=== PATIENT | female | born 1935 | race Caucasian/White ===

== ENCOUNTER → 2020-01-01 14:29 | Outpatient (CLI) | payer MEDICARE, BC | END | disposition home or self-care (01) | LOC: D.HCCECHO 11:00 | PROVIDERS: ATTEND Internal Medicine Cardiovascular Disease | DX: I10 Essential (primary) hypertension (principal) ==

== ENCOUNTER → 2020-07-07 09:04 | Outpatient (CLI) | payer MEDICARE, BC ==
[~2020-07-07 09:04] MED LIST: GLIMEPIRIDE2 MG PO; GLUCOPHAGE1000 MG PO; METOPROLOL TART50 MG PO; NORVASC2.5 MG PO; TIROSINT88 MCG PO
== END | disposition home or self-care (01) ==
LOC: D.RAD 06-15 08:00
PROVIDERS: ATTEND Internal Medicine Gastroenterology
DX: R13.10 Dysphagia, unspecified (principal)

== ENCOUNTER 2020-07-09 08:27 | Inpatient (IN) | payer MEDICARE, BC ==
[~2020-07-09] VITALS: Ht 172.7 cm; Wt 56.7 kg
[2020-07-09] MEDS ORDERED: METOPROLOL TART50 MG PO (08:50)
[2020-07-09] MEDS ORDERED: GLUCOPHAGE1000 MG PO (08:50)
[2020-07-09] MEDS ORDERED: TIROSINT88 MCG PO (08:50)
[2020-07-09] MEDS ORDERED: NORVASC2.5 MG PO (08:51)
[2020-07-09] MEDS ORDERED: GLIMEPIRIDE2 MG PO (08:51)
[2020-07-09 09:20] LABS: BASOPHILS 0.2 % (0-2); EOSINOPHILS 1.9 % (0-7); HEMATOCRIT 33.7 % (36.0-48.0); IMMATURE GRANULOCYTES 0.2 % (0-5); LYMPHOCYTES 18.9 % (15-50); MCH 26.8 pg (26.0-34.0); MCHC 32.6 g/dL (31.0-37.0); MEAN PLATELET VOLUME 10.8 fL (7.4-10.4); MONOCYTES 8.5 % (2-11); NEUTROPHILS 70.3 % (40-80); PLATELET COUNT 274 10x3/uL (130-400); RBC 4.11 10x6/uL (4.00-5.40); RDW 15.1 % (11.5-14.5); WBC 9.5 10x3/uL (4.8-10.8)
[2020-07-09 09:31] LABS: CALC OSMOLALITY 267 mosm/kg (275-300); CARBON DIOXIDE 23.1 mmol/L (21.0-32.0); CHLORIDE - SERUM 98 mmol/L (98-107); CREATININE - SERUM 0.8 mg/dL (0.6-1.3); GLUCOSE 201 mg/dL (74-106); POTASSIUM - SERUM 3.9 mmol/L (3.5-5.1); SODIUM 131 mmol/L (136-145); UREA NITROGEN 10 mg/dL (7-18); eGFR NON AFRICAN AMERICAN 72 mL/min (90-120)
[2020-07-09 09:42] LABS: BILIRUBIN NEGATIVE (NEGATIVE); KETONE NEGATIVE (NEGATIVE); NITRITE NEGATIVE (NEGATIVE); UROBILINOGEN NORMAL mg/dL (< 2)
[2020-07-09 09:43] LABS: BACTERIA MANY /HPF (NONE SEEN)
[2020-07-09 09:45] LABS: ALBUMIN 3.4 g/dL (3.4-5.0); ALKALINE PHOSPHATASE 85 U/L (30-120); ALT (SGPT) 14 U/L (10-68); BILIRUBIN - TOTAL 0.31 mg/dL (0.2-1.3); CKMB 1.2 U/L (0.0-3.6); CREATINE KINASE 702 UL (21-215); PROTEIN - SERUM 8.4 g/dL (6.4-8.2); TROPONIN-I < 0.017 ng/mL (0.000-0.060)
[2020-07-09 09:55] LABS: APTT 27.7 SECONDS (22.8-39.4); INR 0.98 (0.85-1.17)
--- NOTE | 2020-07-09 13:00 | NUR ---
RECEIVED REPORT FROM LISE LINDA. PT LAYING IN BED. NO DISTRESS NOTED. COLOR WNL FOR RACE. RESPIRATIONS ARE EVEN AND UNLABORED. DENIES NEEDS AT THIS TIME. IV PATENT AND INFUSING AT 100ML/HR. NO SIGNS OF INFILATRATION NOTED. WILL CONTINUE TO MONITOR.
--- NOTE | 2020-07-09 15:00 | NUR ---
ASSISTED PATIENT TO BEDSIDE COMMODE WITHOUT DIFFICULTY. PT TOLERATED TRANSITION WELL. PT PLACED BACK IN BED AND DENIES FURTHER NEEDS AT THIS TIME. WILL CONTINUE TO MONITOR.
[2020-07-09 17:02] VITALS: BP 166/78
[2020-07-09 17:16] LABS: LDL-HDL RATIO 1.5 ratio (1.5-3.5)
--- NOTE | 2020-07-09 17:18 | NUR ---
CALLED REPORT TO BAN
[2020-07-09 17:45] LABS: CKMB 1.1 U/L (0.0-3.6); CREATINE KINASE 711 UL (21-215); TROPONIN-I < 0.017 ng/mL (0.000-0.060)
[2020-07-09 18:11] VITALS: BP 151/76
--- NOTE | 2020-07-09 18:19 | NUR ---
ADMIT FROM ER/STRETCHER TO ROOM 2131--PLACED IN COVID ISOLATION FOR PUI AWAITING RESULTS--PT IS A/O, SKIN W/D, 20GA IV TO LEFT AC PLACED/ER STAFF W/IVFINFUSING/ORDER PT TOLERATING ALL WELL. CAP LINING MACHINE OPERATOR IN ROOM OBTAINING VS. NO C/O NOTED AT THIS TIME.
--- NOTE | 2020-07-09 19:30 | NUR ---
PT ALERT AND ORIENTED. SHE DENIES PAIN OR NEEDS. VSS. BED IS LOW AND CALL LIGHT IN REACH.
[2020-07-09 22:50] LABS: CKMB 0.9 U/L (0.0-3.6); CREATINE KINASE 641 UL (21-215); TROPONIN-I < 0.017 ng/mL (0.000-0.060)
[2020-07-09 23:32] VITALS: BMI 19.1
[2020-07-10] VITALS (7 sets, daily range): BP systolic 130–156; BP diastolic 63–85; Ht 172.7 cm; Wt 56.7 kg
[2020-07-10 07:24] LABS: BASOPHILS 0.3 % (0-2); EOSINOPHILS 3.3 % (0-7); HEMATOCRIT 30.6 % (36.0-48.0); HEMOGLOBIN 9.7 g/dL (12-16); IMMATURE GRANULOCYTES 0.2 % (0-5); LYMPHOCYTES 30.4 % (15-50); MCH 26.1 pg (26.0-34.0); MCHC 31.7 g/dL (31.0-37.0); MCV 82.3 fL (80.0-100.0); MEAN PLATELET VOLUME 10.5 fL (7.4-10.4); MONOCYTES 11.7 % (2-11); NEUTROPHILS 54.1 % (40-80); PLATELET COUNT 224 10x3/uL (130-400); RBC 3.72 10x6/uL (4.00-5.40); RDW 15.1 % (11.5-14.5)
[2020-07-10 07:38] LABS: WBC 5.8 10x3/uL (4.8-10.8)
[2020-07-10 07:45] LABS: CKMB 1.1 U/L (0.0-3.6); CREATINE KINASE 604 UL (21-215); TROPONIN-I < 0.017 ng/mL (0.000-0.060)
[2020-07-10 13:08] LABS: ALBUMIN 3.1 g/dL (3.4-5.0); ALKALINE PHOSPHATASE 79 U/L (30-120); ALT (SGPT) 19 U/L (10-68); CALC OSMOLALITY 270 mosm/kg (275-300); CALCIUM 8.5 mg/dL (8.5-10.1); CARBON DIOXIDE 24.7 mmol/L (21.0-32.0); CHLORIDE - SERUM 103 mmol/L (98-107); CKMB 1.1 U/L (0.0-3.6); CREATINE KINASE 672 UL (21-215); CREATININE - SERUM 0.8 mg/dL (0.6-1.3); GLUCOSE 118 mg/dL (74-106); POTASSIUM - SERUM 3.7 mmol/L (3.5-5.1); PROTEIN - SERUM 7.5 g/dL (6.4-8.2); SODIUM 135 mmol/L (136-145); TROPONIN-I < 0.017 ng/mL (0.000-0.060); UREA NITROGEN 13 mg/dL (7-18); eGFR NON AFRICAN AMERICAN 72 mL/min (90-120)
[2020-07-10 17:02] LABS: % SATURATION 9 % (15-55); IRON 27 ug/dl (35-150); TOTAL IRON BIND CAPACITY 271 ug/dl (260-445); UNSAT IRON BIND CAPACITY 244 ug/dl (150-375)
--- NOTE | 2020-07-10 20:00 | NUR ---
PATIENT RESTING IN BED WITH DAUGTHER AT BEDSIDE. NO S/S OF ACUTE DISTRESS. NO C/O AT THIS TIME. PATIENT HAS A LEFT WRIST, NORMAL SALINE @ 100 ML/HR. IV IS PATENT WITHOUT REDNESS, SWELLING, OR TENDERNESS. PATIENT IS UP ADLIB TO THE BATHROOM. CALL LIGHT WITHIN REACH. WILL CONTINUE TO MONITOR.
[2020-07-10 20:15] LABS: BILIRUBIN NEGATIVE (NEGATIVE); KETONE SMALL mg/dL (NEGATIVE); NITRITE NEGATIVE (NEGATIVE); UROBILINOGEN NORMAL mg/dL (< 2)
[2020-07-10 20:17] LABS: BACTERIA FEW HPF (NONE SEEN); EPITHELIAL CELLS 0-5 /hpf (0-5)
--- NOTE | 2020-07-11 04:04 | NUR ---
I have reviewed this patient and I concur with the Shift Assessment completed by the Licensed Practical Nurse today this shift.
[2020-07-11 05:33] VITALS: BP 162/77
[2020-07-11 05:54] LABS: BASOPHILS 0.2 % (0-2); EOSINOPHILS 3.7 % (0-7); HEMATOCRIT 30.6 % (36.0-48.0); HEMOGLOBIN 9.7 g/dL (12-16); IMMATURE GRANULOCYTES 0.2 % (0-5); LYMPHOCYTES 32.4 % (15-50); MCHC 31.7 g/dL (31.0-37.0); MEAN PLATELET VOLUME 10.2 fL (7.4-10.4); MONOCYTES 12.2 % (2-11); NEUTROPHILS 51.3 % (40-80); PLATELET COUNT 226 10x3/uL (130-400); RBC 3.73 10x6/uL (4.00-5.40); RDW 15.1 % (11.5-14.5); WBC 4.8 10x3/uL (4.8-10.8)
[2020-07-11 06:10] LABS: ALBUMIN 2.8 g/dL (3.4-5.0); ALKALINE PHOSPHATASE 66 U/L (30-120); ALT (SGPT) 15 U/L (10-68); BILIRUBIN - TOTAL 0.19 mg/dL (0.2-1.3); CALC OSMOLALITY 277 mosm/kg (275-300); CALCIUM 8.3 mg/dL (8.5-10.1); CARBON DIOXIDE 22.8 mmol/L (21.0-32.0); CHLORIDE - SERUM 108 mmol/L (98-107); CREATININE - SERUM 0.7 mg/dL (0.6-1.3); GLUCOSE 152 mg/dL (74-106); PROTEIN - SERUM 6.9 g/dL (6.4-8.2); SODIUM 138 mmol/L (136-145); eGFR NON AFRICAN AMERICAN 84 mL/min (90-120)
[2020-07-11 06:15] LABS: UREA NITROGEN 9 mg/dL (7-18)
[2020-07-11 08:31] VITALS: BP 141/70
[2020-07-11 11:45] VITALS: BP 130/62
--- NOTE | 2020-07-11 14:17 | MORECARE ---
CASE MANAGEMENT DISCHARGE SUMMARY PATIENT: OSWALDO BO UNIT: [id number] ADM DATE: 07/09/20 AGE: 85 : 35 SEX: F ROOM/BED: D.3630 AUTHOR: REBECCA DE LA TORRE PHYSICIAN: REFERRING PHYSICIAN: HELDER WAYNE MD DATE OF SERVICE: 07/11/20 Discharge Plan Patient Name: OSWALDO BO Facility: [facility]:[place] : 1935 Planned Disposition: Home Anticipated Discharge Date: 07/11/20 Discharge Date: Expected LOS: 2 Initial Reviewer: [email or web address] Initial Review Date: 07/11/2020 Generated: 07/11/20 3:16 pm Comments DCP- Discharge Planning Updated by [email or web address]: Shmuel Bowles on 07/11/20 1:[address] Patient Name: OSWALDO BO Admission Status: ER Accout number: [id number] Admission Date: 07-09-2020 : 1935 Admission Diagnosis:WEAKNESS Attending: HELDER WAYNE Current LOS: 2 Anticipated DC Date: Planned Disposition: Primary Insurance: MEDICARE A & B Discharge Planning Comments: CM met with patient to complete initial dc planning assessment. CM educated patient on the CM role and verbal consent given by patient to speak with daughterCassie ([phone]) to complete assessment. CM verified patient's address, phone number, and emergency contact phone numbers. Patient lives at home. At discharge patient plans to return home and feels this is a safe discharge. Patient and daughter stated that she has a ramp to go into her home and it is safe. Daughter states that the patient fills her medications at [facility] in [place], [place]. CM discussed availability of home health, rehab services, and medical equipment. Patient states no Lower level care needs at this time and refused HH, DME, SNF, and IPR. Transportation provider at discharge will be her daughterCassie. CM will continue to follow and will assist as needed with dc plans/needs. Induction Heat Treater: Shmuel Bowles Patient Name: OSWALDO BO Page [phone] at 1417 All edits/amendments must be made on the electronic document DICTATION DATE: 07/11/201415 STEAM PAN SPONGER: GLENYS 07/11/201415 RPT#: [id number] DC DATE: STATUS: ADM IN [facility] [address] [place] [address] END OF REPORT
--- NOTE | 2020-07-11 14:23 | MORECARE ---
CASE MANAGEMENT DISCHARGE SUMMARY PATIENT: OSWALDO BO UNIT: [id number] ADM DATE: 07/09/20 AGE: 85 : 35 SEX: F ROOM/BED: D.3837 AUTHOR: REBECCA DE LA TORRE PHYSICIAN: REFERRING PHYSICIAN: HELDER WAYNE MD DATE OF SERVICE: 07/11/20 Discharge Plan Patient Name: OSWALDO BO Facility: [facility]:[place] : 1935 Planned Disposition: Home Anticipated Discharge Date: 07/11/20 Discharge Date: Expected LOS: 2 Initial Reviewer: [email or web address] Initial Review Date: 07/11/2020 Generated: 07/11/20 3:23 pm Comments DCP- Discharge Planning Updated by [email or web address]: Shmuel Bowles on 07/11/20 1:[address] Patient Name: OSWALDO BO Admission Status: ER Accout number: [id number] Admission Date: 07-09-2020 : 1935 Admission Diagnosis:WEAKNESS Attending: HELDER WAYNE Current LOS: 2 Anticipated DC Date: Planned Disposition: Primary Insurance: MEDICARE A & B Discharge Planning Comments: CM met with patient to complete initial dc planning assessment. CM educated patient on the CM role and verbal consent given by patient to speak with daughterCassie ([phone]) to complete assessment. CM verified patient's address, phone number, and emergency contact phone numbers. Patient lives at home. At discharge patient plans to return home and feels this is a safe discharge. Patient and daughter stated that she has a ramp to go into her home and it is safe. Daughter states that the patient fills her medications at [facility] in [place], [place]. CM discussed availability of home health, rehab services, and medical equipment. Patient states no Lower level care needs at this time and refused HH, DME, SNF, and IPR. Transportation provider at discharge will be her daughterCassie. CM will continue to follow and will assist as needed with dc plans/needs. Vice President Of Academic Affairs: Shmuel Bowles DCPIA - Discharge Planning Initial Assessment Updated by [email or web address]: Shmuel Bowles on 07/11/20 2:18 pm * Is the patient Alert and Oriented? Yes * How many steps to enter\exit or inside your home? RAMP * PCP Dr. Trujillo * Pharmacy [facility] in [place], [place] * Preadmission Environment Home Alone * ADLs Independent * Equipment None * Other Equipment NONE * List name and contact numbers for known caregivers / representatives who currently or will assist patient after discharge: Cassie Gonzalezpherd * Verbal permission to speak to the caregivers and representatives has been obtained from the patient. Yes * Community resources currently utilized None * Additional services required to return to the preadmission environment? No * Can the patient safely return to the preadmission environment? Yes * Has this patient been hospitalized within the prior 30 days at any hospital? No Coverage Notice Reviewer: [email or web address] Les Bowles Notice Issued Date-Time: 07/11/2020 14:18 Notice Type: Patient Choice Letter Notice Delivered To: Patient Relationship to Patient: Self Director Of Perioperative Services Name: Delivery Method: HAND - Hand Delivered Rose Days: Prior Verbal Notification: Recipient Understood Notice: Yes Recipient Signature: Yes Med Rec Note Co-signed by Attending: Coverage Notice Comment: NO needs, Patient Refused IPR, HH, SNF, and DME Last DP export: 07/11/20 1:17 p Patient Name: OSWALDO BO Page [phone] at 1423 All edits/amendments must be made on the electronic document DICTATION DATE: 07/11/201422 COLLABORATIVE TEACHER: GLENYS 07/11/201422 RPT#: [id number] DC DATE: STATUS: ADM IN [facility] [address] [place] [address] END OF REPORT
--- NOTE | 2020-07-11 14:34 | NUR ---
DC'D PT'S IV FROM RT WRIST--CATH INTACT--SMALL BANDAGE APPLIED, PT TOLERATED WELL. CM DC'D. ALL DC PAPERWORK VERBALLY EXPLAINED TO PT AND PT'S DAUGHTER W/UNDERSTANDING STATED TO ALL. PT EXITED HOSPITAL/WHEELCHAIR IN GOOD STABLE CONDITION TO DAUGHTERS PRIVATE AUTO.
--- NOTE | 2020-07-13 09:08 | MORECARE ---
CASE MANAGEMENT DISCHARGE SUMMARY PATIENT: OSWALDO BO UNIT: [id number] ADM DATE: 07/09/20 AGE: 85 : 35 SEX: F ROOM/BED: D.1846 AUTHOR: REBECCA DE LA TORRE PHYSICIAN: REFERRING PHYSICIAN: HELDER WAYNE MD DATE OF SERVICE: 07/13/20 Discharge Plan Patient Name: OSWALDO BO Facility: [facility]:[place] : 1935 Planned Disposition: Home Anticipated Discharge Date: 07/11/20 Discharge Date: 07/11/2020 Expected LOS: 2 Initial Reviewer: [email or web address] Initial Review Date: 07/11/2020 Generated: 07/13/20 10:07 am Comments DCP- Discharge Planning Updated by [email or web address]: Shmuel Bowles on 07/11/20 1:[address] Patient Name: OSWALDO BO Admission Status: ER Accout number: [id number] Admission Date: 07-09-2020 : 1935 Admission Diagnosis:WEAKNESS Attending: HELDER WAYNE Current LOS: 2 Anticipated DC Date: Planned Disposition: Primary Insurance: MEDICARE A & B Discharge Planning Comments: CM met with patient to complete initial dc planning assessment. CM educated patient on the CM role and verbal consent given by patient to speak with daughterCassie ([phone]) to complete assessment. CM verified patient's address, phone number, and emergency contact phone numbers. Patient lives at home. At discharge patient plans to return home and feels this is a safe discharge. Patient and daughter stated that she has a ramp to go into her home and it is safe. Daughter states that the patient fills her medications at [facility] in [place], [place]. CM discussed availability of home health, rehab services, and medical equipment. Patient states no Lower level care needs at this time and refused HH, DME, SNF, and IPR. Transportation provider at discharge will be her daughterCassie. CM will continue to follow and will assist as needed with dc plans/needs. Gallery Or Museum Attendant: Shmuel Bowles DCPIA - Discharge Planning Initial Assessment Updated by [email or web address]: Shmuel Bowles on 07/11/20 2:18 pm * Is the patient Alert and Oriented? Yes * How many steps to enter\exit or inside your home? RAMP * PCP Dr. Trujillo * Pharmacy [facility] in [place], [place] * Preadmission Environment Home Alone * ADLs Independent * Equipment None * Other Equipment NONE * List name and contact numbers for known caregivers / representatives who currently or will assist patient after discharge: Cassie Reese * Verbal permission to speak to the caregivers and representatives has been obtained from the patient. Yes * Community resources currently utilized None * Additional services required to return to the preadmission environment? No * Can the patient safely return to the preadmission environment? Yes * Has this patient been hospitalized within the prior 30 days at any hospital? No Coverage Notice Reviewer: [id number] Les Bowles Notice Issued Date-Time: 07/11/2020 13:35 Notice Type: Patient Choice Letter Notice Delivered To: Patient Relationship to Patient: Self Metal Welder Name: Delivery Method: HAND - Hand Delivered Rose Days: Prior Verbal Notification: Recipient Understood Notice: Yes Recipient Signature: Yes Med Rec Note Co-signed by Attending: Coverage Notice Comment: NO needs, Patient Refused IPR, HH, SNF, and DME Last DP export: 07/11/20 1:23 p Patient Name: OSWALDO BO Page [phone] at 0908 All edits/amendments must be made on the electronic document DICTATION DATE: 07/13/20907 REGISTERED SALES ASSISTANT: GLENYS 07/13/20907 RPT#: [id number] DC DATE:07/11/20 STATUS: DIS IN [facility] [address] [place] [address] END OF REPORT
== END 2020-07-11 14:38 | disposition home or self-care (01) | DRG 69 ==
LOC: D.ER 08:27 → D.M2 10:51
PROVIDERS: Family Medicine; ADMIT Emergency Medicine; ATTEND Emergency Medicine
DX: G45.9 Transient cerebral ischemic attack, unspecified (principal); E87.1 Hypo-osmolality and hyponatremia; N39.0 Urinary tract infection, site not specified; E11.65 Type 2 diabetes mellitus with hyperglycemia; D64.9 Anemia, unspecified; I69.891 Dysphagia following other cerebrovascular disease; R13.10 Dysphagia, unspecified

== ENCOUNTER → 2020-07-28 07:55 | Outpatient (CLI) | payer MEDICARE, BC ==
[2020-07-10 13:46] VITALS: BMI 19.0
== END | disposition home or self-care (01) ==
LOC: D.HCCARDIO 07:55
PROVIDERS: ATTEND Internal Medicine Cardiovascular Disease
DX: R07.9 Chest pain, unspecified (principal)

== ENCOUNTER 2021-03-07 11:22 | Observation (INO) | payer MEDICARE, BC ==
[2021-03-07] VITALS (8 sets, daily range): BP systolic 117–198; BP diastolic 65–83; Ht 172.7 cm; Wt 56.8 kg
[~2021-03-07] VITALS: Ht 172.7 cm; Wt 56.8 kg
--- NOTE | ~2021-03-07 | HEMODYNAMI ---
PATIENT:OSWALDO BO MEDICAL RECORD: [id number] : 35 [id number] ADMISSION DATE: 03/07/21 Generatedon:111:52 Patient name: OSWALDO BO Patient #: [id number] SSN: [id number] : 1935 Date of study: 03/08/2021 Page: Of Hemodynamic Procedure Report Patient Data Patient Demographics Procedure consent was obtained First Name: OSWALDO Gender: Female Last Name: ANUPAM : 1935 Middle Initial: J Age: 85 year(s) Patient #: [id number] Race: SSN: [id number] Additional ID: [id number] Contact details Address: [address] [place] [address] State: [place] City: [place] Zip code: [address] Past Medical History Allergies: No known allergies Admission Admission Data Admission Date: 03/07/2021 Admission Time: 13:59 Arrival Date: 03/07/2021 Arrival Time: 13:59 Admit Source: Emergency Insurance Payor: Medicare department [facility] #: [id number] Room #: [facility] Height (in.): 67.72 BSA: 1.66 (m2) Height (cm.): 172 BMI: 18.93 (kg/m2) Weight (lbs.): 123.46 Weight (kg.): 56 Lab Results Lab Result Date: 03/08/2021 Lab Result Time: 0:00 Biochemistry Name Units Result Min Max BUN mg/dl 16 --(---*)-- 7 18 Creatinine mg/dl 0.7 --(*---)-- 0.6 1.3 CBC Name Units Result Min Max Hemoglobin g/dl 9.8 *-(----)-- 13.5 17.5 Procedure Procedure Types Cath Procedure Diagnostic Procedure LHC LHC w/Coronaries FFR/IVUS FFR Initial FFR Additional Sedation Charges Moderate Sedation 25-39 minutes PCI Procedure Hemochron ACT Test Procedure Description Procedure Date Procedure Date: 03/08/2021 Procedure Start Time: 11:20 Procedure End Time: 11:49 Procedure Staff Name Function Kevon Redmond MD Performing Physician Angeline Kunz RT Monitor Zoie Macario RT Scrub Jaziel Hendrickson RN Nurse Procedure Data Cath Procedure Fluoroscopy Diagnostic fluoroscopy Total fluoroscopy Time: 5.3 time: 5.3 min min Diagnostic fluoroscopy Total fluoroscopy dose: 446 dose: 446 mGy mGy Contrast Material Contrast Material Type Amount (ml) Isovue 370 90 Entry Location Entry Primary Successful Side Size Upsize Upsize Entry Closure Succes sful Closure Location (Fr) 1 (Fr) 2 (Fr) Remarks Device Remarks Femoral Right 5 Fr 6 Fr Exoseal artery Short Estimated blood loss: 5 ml Diagnostic catheters Device Type Used For End Catheter Placement MULTIPACK JL 4.0 5Fr Procedure catheter MULTIPACK 3DRC 5Fr Procedure catheter MULTIPACK Pigtail 5 Fr Procedure catheter Procedure Complications No complications Procedure Medications Medication Administration Route Dosage 0.9% NaCl I.V. 100 ml/hr Oxygen etCO2 Nasal cannula 2 l/min Heparin Flush Bag added to field 2 bags (1000units/500ml NS) Lidocaine 2% added to field 20 Versed I.V. 0.5 mg Fentanyl I.V. 25 mcg Versed I.V. 0.5 mg Fentanyl I.V. 25 mcg Heparin Bolus I.V. 5000 units Hemodynamics Rest BSA: 1.66 (m2) HGB: 9.8 (g/dl) O2 Consumption: Estimated: 147.34 (ml/min) O2 Con sumption indexed: Estimated:88.76 (ml/min/m) Heart Rate: 70 (bpm) Pressure Samples Time Site Value (mmHg) Purpose Heart Use Rate(bpm) 11:28 AO 108/42(72) Pullback 66 11:28 LV 119/-1,20 Pullback 66 Gradients Valve Time Site 1 Site 2 Mean SEP/DFP Peak To Heart Use (mmHg) (sec/min) Peak Rate (mmHg) (bpm) Aortic 11:28 LV AO 8 23 11 66 119/-1,20 108/42(72) Calculations Valve P-P Mean Valve Index Valve Source Name Gradient Area Flow (cm2) Aortic 11 8 11 8 Snapshots Pre Cath Intra NCS Post Cath Vital Signs Time Heart Resp SPO2 etCO2 NIBP (mmHg) Rhythm Pain Sedation Rate (ipm) (%) (mmHg) Status Level (bpm) 11:07:42 70 17 100 29.2 168/75(135) NSR 0 (11) 10(A) , No pain 11:12:02 66 15 100 11.2 140/67(111) NSR 0 (11) 10(A) , No pain 11:16:14 65 11 100 0 125/64(94) NSR 0 (11) 10(A) , No pain 11:20:22 65 13 100 0 122/62(96) NSR 0 (11) 10(A) , No pain 11:24:28 64 11 99 0 119/59(92) NSR 0 (11) 10(A) , No pain 11:28:36 65 10 99 0 114/57(87) NSR 0 (11) 10(A) , No pain 11:32:40 66 12 99 27.6 130/60(93) NSR 0 (11) 10(A) , No pain 11:36:49 66 11 99 0 112/61(89) NSR 0 (11) 9(A) , No pain 11:40:53 66 13 99 0 122/59(94) NSR 0 (11) 9(A) , No pain 11:45:56 68 15 100 0.7 145/72(117) NSR 0 (11) 10(A) , No pain 11:50:08 68 14 99 0 132/69(113) NSR 0 (11) 10(A) , No pain Medications Time Medication Route Dose Verified Delivered Reason Notes Effectiveness by by 11:10:31 0.9% NaCl I.V. 100 Jaziel Jaziel Per physician ml/hr Madhavi Hendrickson RN RN 11:10:40 Oxygen etCO2 2 Jaziel Jaziel for low 02 sats Nasal l/min Madhavi Hendrickson cannula RN RN 11:10:51 Heparin Flush added 2 Jaziel Jaziel used for Bag to bags Madhavi Hendrickson procedure (1000units/500ml field RN RN NS) 11:11:00 Lidocaine 2% added 20ml Jaziel Jaziel for local to vial Madhavi Hendrickson anesthetic field LINDA RN 11:17:15 Versed I.V. 0.5 Jaziel Jaziel for sedation mg Madhavi Hendrickson RN RN 11:17:24 Fentanyl I.V. 25 Jaziel Jaziel for sedation mcg Madhavi Hendrickson RN RN 11:21:32 Versed I.V. 0.5 Jaziel Jaziel for sedation mg Madhavi Hendrickson RN RN 11:21:38 Fentanyl I.V. 25 Jaziel Jaziel for sedation mcg Madhavi Hendrickson RN RN 11:33:26 Heparin Bolus I.V. 5000 Jaziel Jaziel for units Madhavi Hendrickson anticoagulation RN shower attendant Log Time Note 10:37:40 Diagnostic Cath Status : Urgent 10:38:16 Informed consent obtained and on chart 10:39:01 Arrival Date: 03/07/2021 1:59:00 PM 10:39:33 Insurance Payor : Medicare 10:39:34 Admit Source: Emergency department 10:39:38 Patient Height : 67.72 inches 10:39:42 Patient Weight : 123.46 lbs 10:40:17 Lab Result : Hemoglobin 9.8 g/dl 10:40:17 Lab Result : Creatinine 0.7 mg/dl 10:40:17 Lab Result : BUN 16 mg/dl 10:40:30 Procedure Status Urgent Heart Cath (IP). 10:40:32 Time tracking: Regular hours (M-F 7:00 - 5:00) 10:40:36 Plan of Care:Hemodynamics will remain stable., Cardiac rhythm will remain stable., Comfort level will be maintained., Respiratory function will remain adequate., Patient/ family verbilizes understanding of procedure., Procedure tolerated without complication., Recovers from procedure without complications.. 10:49:30 ACC Patient presents with Unstable Angina CCS Anginal Class 2--Slight limitation of ordinary activity. 10:52:09 Zoie Macario RT(R) sent for patient. Start room use. 10:53:09 H&P Date Dictated: 03/07/2021 Within 30 days and on chart.. 10:53:11 Family unavailable. 10:53:13 Patient NPO since Midnight. 10:53:19 Patient allergic to No known allergies 10:53:25 Lab results completed and on chart. 10:53:28 Stress Test: no; N/A ? 10:53:30 Alarms reviewed by R. N. 10:53:30 Sharps counted by scrub and verified by R.N. 10:58:51 Patient received from Med II to CCL 2 Alert and oriented. Tansferred to table in Supine position. 10:58:52 Warm blankets applied, and delgado hugger turned on for patient comfort. 10:58:53 Correct patient and procedure confirmed by team. 10:58:53 ECG and BP/O2 sat monitors applied to patient. 10:59:00 Pre-procedure instructions explained to patient. 10:59:00 Pre-op teaching completed and patient verbalized understanding. 10:59:02 Is the patient allergic to Iodine/contrast media? No. 10:59:03 Was the patient premedicated? Yes 11:06:34 Vital chart was started 11:06:41 Full Disclosure recording started 11:06:42 Baseline sample Acquired. 11:06:45 Is patient on blood thinner?Yes 11:06:48 ACC The patient was administered the following blood thiners within the last 24 hours: ACCPlavix 11:06:50 Patient diabetic? Yes. 11:06:51 If diabetic: On Metformin? Yes 11:06:55 If on Metformin: Last Dose? 03/07/2021 11:06:59 Patient not . Patient is over age 55. 11:07:00 ----Pre-sedation anethsthesia assessment.---- 11:07:02 Previous problem with sedation/anesthesia? No ? 11:07:03 Snore? Yes 11:07:04 Sleep apnea? Unknown 11:07:05 Deviated septum? No 11:07:06 Opens mouth fully? Yes 11:07:07 Sticks out tongue? Yes 11:07:09 Airway obstruction? No ? 11:07:11 Dentures? No ? 11:07:13 Pre procedure: right dorsailis pedis pulse 1+ Palpable, but thready & weak; easily obliterated 11:07:17 Patient pain scale 0/10 ?. 11:07:22 IV patent on arrival in left antecubital with 0.9% NaCl at O. 11:07:27 Right groin area was prepped with chlora-prep and draped in sterile fashion 11:07:30 Use device set Femoral Dx 11:07:31 ACIST Syringe (03490) opened to sterile field. 11:07:31 Bag Decanter (2002) opened to sterile field. 11:07:32 Medline Cath Pack ([id number]) opened to sterile field. 11:07:33 ACIST Hand Control (83567) opened to sterile field. 11:07:34 ACIST Manifold (14870) opened to sterile field. 11:07:35 DIAGNOSTIC Multipack 5Fr catheter set (MT1152) opened to sterile field. 11:07:35 SHEATH 5FR [employer] (VRW773) opened to sterile field. 11:07:36 EMERALD Guide Wire (393-771) opened to sterile field. 11:07:37 Tegaderm 4 x 4 (1626W) opened to sterile field. 11:07:50 Rhythm: sinus rhythm 11:10:31 0.9% NaCl 100 ml/hr I.V. was administered by Jaziel Hendrickson RN; Per physician; Verbal order read back and verified. 11:10:40 Oxygen 2 l/min etCO2 Nasal cannula was administered by Jaziel Hendrickson RN; for low 02 sats; Verbal order read back and verified. 11:10:51 Heparin Flush Bag (1000units/500ml NS) 2 bags added to field was administered by Jaziel Hendrickson RN; used for procedure; Verbal order read back and verified. 11:11:00 Lidocaine 2% 20ml vial added to field was administered by Jaziel Hendrickson RN; for local anesthetic; Verbal order read back and verified. 11:12:19 --------ALL STOP TIME OUT------ 11:12:19 Final Timeout: patient, procedure, and site verified with staff and physician. All members of the team are in agreement. 11:12:21 Right groin site verified by team. 11:12:24 Fire Safety Assessment: A--An alcohol-based skin anteseptic being used preoperatively., C--Open oxygen or nitrous oxide is being used., D--An ESU, laser, or fiber-optic light is being used. 11:12:34 Physical assessment completed. ASA score P 2 - A patient with mild systemic disease as per Kevon Redmond MD. 11:12:37 2) 60-89 Mildly reduced kidney function, and other findings (as for stage 1) point to kidney disease. 11:12:40 Maximum allowable contrast dose (3.7 X eGFR X 0.75)233 ml. 11:12:44 Sedation plan: IV Moderate Sedation Medication:Versed, Fentanyl 11:17:15 Versed 0.5 mg I.V. was administered by Jaziel Hendrickson RN; for sedation; Verbal order read back and verified. 11:17:24 Fentanyl 25 mcg I.V. was administered by Jaziel Hendrickson RN; for sedation; Verbal order read back and verified. 11:19:28 Procedure started. 11:20:28 Local anesthetic to right femoral artery with Lidocaine 2% by Kevon Redmond MD.INITIAL ACCESS ONLY 11:21:32 Versed 0.5 mg I.V. was administered by Jaziel Hendrickson RN; for sedation; Verbal order read back and verified. 11:21:38 Fentanyl 25 mcg I.V. was administered by Jaziel Hendrickson RN; for sedation; Verbal order read back and verified. 11:22:24 EMERALD J WIRE INSERTED FOR SHEATH ACCESS. 11:22:35 A 5 Fr sheath was inserted into the Right Femoral artery 11:23:26 A MULTIPACK JL 4.0 5Fr catheter was advanced over the wire and used for Procedure. 11:23:52 LCA angiography performed. 11:23:55 Injector settings: Ml/sec: 3, Volume: 6, 11:24:39 Catheter exchanged over wire. 11:25:16 A MULTIPACK 3DRC 5Fr catheter was advanced over the wire and used for Procedure. 11:25:47 RCA angiography performed. 11:25:52 Injector settings: Ml/sec: 3, Volume: 6, 11:26:11 ACCDominant side:Co-Dominant 11:26:53 A MULTIPACK Pigtail 5 Fr catheter was advanced over the wire and used for Procedure. 11:27:05 Use device set REDMOND PCI 11:27:10 LV gram done using GARCIA 11:28:06 LV hemodynamics recorded. 11:28:11 Injector settings: Ml/sec: 5, Volume: 15, 11:28:16 EF : 60 % 11:28:27 Catheter exchanged over wire. 11:28:30 Proceeding to intervention. 11:29:51 INFLATOR Merit BasixCompak (JL7869) opened to sterile field. 11:29:52 TUBING High Pressure Extension Tubing (Redmond) (YL4875E) opened to sterile field. 11:29:58 SHEATH 6FR [employer] (OLK014) opened to sterile field. 11:30:24 GUIDE 6FR XBLAD 3.5 catheter ([id number]) opened to sterile field. 11:32:11 Huger OmniWire (77728) opened to sterile field. 11:32:43 Sheath upsized to a 6 Fr Short. 11:32:45 6 Fr XBLAD 3.5 guide catheter was inserted over the wire 11:33:26 Heparin Bolus 5000 units I.V. was administered by Jaziel Hendrickson RN; for anticoagulation; Verbal order read back and verified. 11:34:20 OMNI PRESSURE WIRE wire advanced. 11:35:07 Zero performed for pressure channel P1 11:35:10 Zero performed for pressure channel P1 11:35:51 Wire advanced across lesion. 11:39:08 Circ lesion measured at .95 with IFR 11:41:19 Wire redirected to LAD. 11:41:53 LAD lesion measured at .93 with IFR 11:43:14 Wire removed. 11:43:15 Guide catheter removed. 11:43:23 EXOSEAL 6Fr (EX600) opened to sterile field. 11:44:14 Sheath removed intact; hemostasis achieved with Exoseal to the Right Femoral artery. 11:44:31 Fluoroscopy time 05.30 minutes. 11:44:36 Fluoroscopy dose: 446 mGy 11:44:36 Flurop Dose total: 446 11:44:41 Dose Area Product 51171 mGy/cm. 11:44:44 Sharps counted by scrub and verified by R.N. 11:45:06 Procedure ended.(Physican Out) 11:46:45 Contrast amount:Isovue 370 90ml. 11:46:48 Maximum allowable dose exceeded? No. 11:46:58 Post-op/insertion site Right Femoral artery dressed using a 4 x 4 and Tegaderm. 11:47:02 Post right femoral artery:stable, soft, clean and dry 11:47:03 Post Procedure Pulses reassessed and unchanged 11:47:06 Post procedure: right dorsailis pedis pulse 1+ Palpable, but thready & weak; easily obliterated. 11:47:09 Post-procedure physical assessment completed. ASA score P 2 - A patient with mild systemic disease as per Kevon Redmond MD. 11:47:12 Post procedure rhythm: unchanged. 11:47:16 Estimated blood loss: 5 ml 11:47:17 Post procedure instruction explained to patient.Patient verbalizes understanding. 11:47:18 Patient needs reinforcement of post procedure teaching. 11:47:49 Procedure type changed to Cath procedure, Diagnostic procedure, LHC, [facility] w/Coronaries, FFR/IVUS, FFR Initial, FFR Additional, Sedation Charges, Moderate Sedation 25-39 minutes, PCI procedure, Hemochron ACT Test 11:48:31 Procedure and supply charges have been captured, reviewed, submitted and are correct. 11:48:34 Procedure Complication : No complications 11:48:45 [facility] Findings: mild to moderate CAD (<70%) 11:48:48 Operative report dictated upon procedure completion. 11:48:48 See physician's report for complete and final results. 11:49:39 Report given to [facility]. 11:49:42 Patient transfered to [facility] with Bed. 11:49:44 Procedure ended. 11:49:44 Full Disclosure recording stopped 11:49:50 End room use (Document Last) 11:51:06 ACT drawn and resulted at >400 high out of range seconds. (normal therapeutic range 180-240 seconds). 11:51:39 End room use (Document Last) 11:51:55 End room use (Document Last) 11:52:51 Vital chart was stopped Device Usage Item Name Manufacture Quantity Catalog Hospital Part Current Minimal L ot# / Number Charge Number Stock Stock Serial# Code ACIST Acist 1 78003 471701 795251 390450 20 Syringe Medical (07153) Systems Inc Bag Microtek 1 174994 10241 872747 5 Decanter Medical Inc. () Medline Medline 1 [id number] 523637 70185 353969 5 Cath Pack ([id number]) ACIST Hand Acist 1 15648 998822 206055 690515 5 Control Medical (56322) Systems Inc ACIST Acist 1 18251 624060 664998 150393 5 Manifold Medical (12777) Systems Inc DIAGNOSTIC Cardinal 1 VW3212 847924 52240 675603 30 Multipack Health 5Fr catheter set (BL7686) SHEATH 5FR Terumo 1 QQJ913 483775 195832 131368 5 [employer] (LYL484) EMERALD Cardinal 1 502-455 256177 381730 139951 5 Guide Wire Health (502-455) Tegade 4 3M 1 1626W 831044 181408 500933 5 x 4 (1626W) MULTIPACK Cardinal 1 484191 5 JL 4.0 5Fr Health catheter MULTIPACK Cardinal 1 409434 5 3DRC 5Fr Health catheter MULTIPACK Cardinal 1 077131 5 Pigtail 5 Health Fr catheter INFLATOR Merit 1 NN1829 380743 318198 148117 15 Merit Medical BasixCompak (EZ3998) TUBING High Merit 1 [id number] 657083 30795 219257 10 Pressure Medical Extension Tubing (Redmond) (FF3010R) SHEATH 6FR Terumo 1 ILJ473 810848 022206 491299 40 [employer] (OKK627) GUIDE 6FR Cardinal 1 54495003 561816 780261 476962 10 XBLAD 3.5 Health catheter (10462934) Huger Huger 1 6671082 019525 49091 9939 5 OmniWire (44707) EXOSEAL 6Fr Cardinal 1 EX600 744326 462097 034034 10 (EX600) Health Signature Audit Gerlaw Stage Time Signature Unsigned Intra-Procedure 03/08/2021 Angeline Kunz 11:51:39 AM RT(R) Intra-Procedure 03/08/2021 Jaziel 11:51:55 AM Madhavi LINDA Intra-Procedure 03/08/2021 Kevon Redmond MD 11:52:48 AM Signatures Performing Physician : Signature : Kevon Redmond MD Date : Time : Monitor : Angeline Kunz Signature : RT Date : Time : Nurse : Jaziel Hendrickson Signature : RN Date : Time : [facility] [address] [place] [address]
[2021-03-07 11:51] LABS: BASOPHILS 0.3 % (0-2); EOSINOPHILS 1.3 % (0-7); HEMATOCRIT 33.4 % (36.0-48.0); HEMOGLOBIN 10.7 g/dL (12-16); IMMATURE GRANULOCYTES 0.3 % (0-5); LYMPHOCYTES 34.6 % (15-50); MCH 25.1 pg (26.0-34.0); MCV 78.4 fL (80.0-100.0); MEAN PLATELET VOLUME 10.2 fL (7.4-10.4); MONOCYTES 10.2 % (2-11); NEUTROPHILS 53.3 % (40-80); RBC 4.26 10x6/uL (4.00-5.40); RDW 15.9 % (11.5-14.5); WBC 9.6 10x3/uL (4.8-10.8)
[2021-03-07 11:54] LABS: PLATELET COUNT 320 10x3/uL (130-400)
[2021-03-07 11:57] LABS: CALC OSMOLALITY 273 mosm/kg (275-300); CALCIUM 9.5 mg/dL (8.5-10.1); CARBON DIOXIDE 24.6 mmol/L (21.0-32.0); CHLORIDE - SERUM 100 mmol/L (98-107); CREATININE - SERUM 0.8 mg/dL (0.6-1.3); GLUCOSE 136 mg/dL (74-106); POTASSIUM - SERUM 4.1 mmol/L (3.5-5.1); SODIUM 135 mmol/L (136-145); UREA NITROGEN 18 mg/dL (7-18); eGFR NON AFRICAN AMERICAN 72 mL/min (90-120)
[2021-03-07 11:59] LABS: APTT 25.9 SECONDS (22.8-39.4); INR 0.99 (0.85-1.17); PROTIME 12.1 SECONDS (11.6-15.0)
[2021-03-07] MEDS ORDERED: PLAVIX75 MG PO (12:08)
[2021-03-07 12:13] LABS: ALBUMIN 3.4 g/dL (3.4-5.0); ALKALINE PHOSPHATASE 87 U/L (30-120); ALT (SGPT) 18 U/L (10-68); BILIRUBIN - TOTAL 0.21 mg/dL (0.2-1.3); CREATINE KINASE 549 UL (21-215); MAGNESIUM - SERUM 2.1 mg/dL (1.8-2.4); PROTEIN - SERUM 8.4 g/dL (6.4-8.2)
[2021-03-07 12:15] LABS: TROPONIN-I < 0.017 ng/mL (0.000-0.060)
--- NOTE | 2021-03-07 14:32 | NUR ---
PT BLOOD GLUCOSE 107 AT THIS TIME, PRIMARY RN INFORMED
--- NOTE | 2021-03-07 19:41 | NUR ---
RECEIVED REPORT WILL ASSUME CARE OF PT, IN BED READING A BOOK, EXPLAIN SHE WILL BE NPO AFTER MIDNIGHT, DENIES ANY NEEDS, BED IS LOW, SRX2, CALL LIGHT IN REACH, WILL CONTINUE PLAN OF CARE
[2021-03-08 01:11] VITALS: BP 139/59
[2021-03-08 01:49] LABS: CKMB 0.9 U/L (0.0-3.6); CREATINE KINASE 480 UL (21-215)
[2021-03-08 01:51] LABS: TROPONIN-I < 0.017 ng/mL (0.000-0.060)
[2021-03-08 05:25] VITALS: BP 126/58
[2021-03-08 06:23] LABS: BASOPHILS 0.3 % (0-2); EOSINOPHILS 1.4 % (0-7); HEMATOCRIT 31.2 % (36.0-48.0); HEMOGLOBIN 9.8 g/dL (12-16); IMMATURE GRANULOCYTES 0.2 % (0-5); LYMPHOCYTE ABS# 1.99 10x3/uL (1.18-3.74); LYMPHOCYTES 30.7 % (15-50); MCH 24.7 pg (26.0-34.0); MCHC 31.4 g/dL (31.0-37.0); MCV 78.6 fL (80.0-100.0); MEAN PLATELET VOLUME 10.4 fL (7.4-10.4); NEUTROPHIL ABS# 3.73 10x3/uL (1.56-6.13); NEUTROPHILS 57.4 % (40-80); PLATELET COUNT 289 10x3/uL (130-400); RBC 3.97 10x6/uL (4.00-5.40); RDW 16.1 % (11.5-14.5)
[2021-03-08 06:31] LABS: ALBUMIN 3.1 g/dL (3.4-5.0); ALKALINE PHOSPHATASE 76 U/L (30-120); ALT (SGPT) 17 U/L (10-68); BILIRUBIN - TOTAL 0.25 mg/dL (0.2-1.3); CALC OSMOLALITY 282 mosm/kg (275-300); CALCIUM 8.8 mg/dL (8.5-10.1); CARBON DIOXIDE 25.4 mmol/L (21.0-32.0); CHLORIDE - SERUM 107 mmol/L (98-107); CHOL - HDL RATIO 2.7 ratio (2.3-4.1); CHOLESTEROL, TOTAL 157 mg/dL (0-200); CREATININE - SERUM 0.7 mg/dL (0.6-1.3); GLUCOSE 114 mg/dL (74-106); HDL CHOLESTEROL 59 mg/dL (32-96); LDL CHOLESTEROL 86 mg/dL (0-100); LDL-HDL RATIO 1.5 ratio (1.5-3.5); MAGNESIUM - SERUM 2.1 mg/dL (1.8-2.4); PHOSPHOROUS 3.8 mg/dL (2.5-4.9); POTASSIUM - SERUM 4.1 mmol/L (3.5-5.1); PROTEIN - SERUM 7.7 g/dL (6.4-8.2); SODIUM 141 mmol/L (136-145); TRIGLYCERIDE 62 mg/dL (30-200); UREA NITROGEN 16 mg/dL (7-18); eGFR NON AFRICAN AMERICAN 84 mL/min (90-120)
[2021-03-08 06:34] LABS: WBC 6.5 10x3/uL (4.8-10.8)
[2021-03-08 07:16] LABS: CKMB 0.7 U/L (0.0-3.6); CREATINE KINASE 516 UL (21-215)
[2021-03-08 07:19] LABS: TROPONIN-I < 0.017 ng/mL (0.000-0.060)
--- NOTE | 2021-03-08 07:20 | NUR ---
INITIAL ROUNDS- PT RESTING COMFORTABLY IN BED. A/O X4, RESP EVEN AND NONLABORED ON 2L NC. RT AC IV INFUSING NS AT 50CC/HR. SR 62 ON TELE. PT DENIES ANY NEEDS AT THIS TIME. CALL LIGHT IN REACH, WILL CONTINUE PLAN OF CARE.
[2021-03-08 08:42] VITALS: BP 129/59
--- NOTE | 2021-03-08 11:00 | NUR ---
PT TO ESTHETICIAN SPA
--- NOTE | 2021-03-08 12:12 | NUR ---
RECEIVED PT BACK TO ROOM 2116. PT A/O X4. VITAL SIGNS STABLE, PLACED ON FREQUENT VITAL SIGNS. RT GROIN DRESSING CDI, NO S/S OF BLEEDING OR HEMATOMA. INSTRUCTED TO REMAIN FLAT FOR THE NEXT 4HRS. PT AND FAMILY VERBALIZED UNDERSTANDING.
--- NOTE | 2021-03-08 12:40 | NUR ---
NO CHANGES TO RT GROIN FROM PREVIOUS ASSSESMENT. PT RESTING COMFORTABLY IN BED, DENIES ANY NEEDS. FAMILY AT BEDSIDE, CALL LIGHT IN REACH.
[2021-03-08] MEDS ORDERED: ISOSORBIDE MONO30 M1 PO (13:36)
[2021-03-08] MEDS ORDERED: NITROQUICK0.4 MG SL (13:37)
[2021-03-08] MEDS ORDERED: OMNICEF300 MG PO (13:43)
[2021-03-08] MEDS ORDERED: PRAVASTATIN SOD10 MG PO (15:18)
--- NOTE | 2021-03-08 15:19 | NUR ---
NOTIFIED KRYSTAL MCGILL THAT DR. DIAZ WANTS PT ON PRAVASTATIN 20MG HS AND PT ALSO NEEDS TO BE ON A BETA ANA.
--- NOTE | 2021-03-08 16:53 | NUR ---
PROVIDED VERBAL AND WRITTEN DISCHARGE TEACHING TO PT AND PT'S DAUGHTER, BOTH VERBALIZED UNDERSTANDING REGARIDNG TEACHING. D/C RT AC IV WITH CATHETER TIP INTACT, HEART MONITOR REMOVED AND TAKEN TO CITY SURVEYOR. PT LEFT UNIT VIA WHEELCHAIR, ACCOMPANIED BY DAUGHTER WITH ALL BELONGINGS.NAD NOTED.
== END 2021-03-08 17:00 | disposition home or self-care (01) ==
LOC: D.ER 11:22 → OBSVTIME 13:59 → D.M2 13:59
PROVIDERS: Family Medicine; Internal Medicine Cardiovascular Disease; ADMIT Family Medicine; ATTEND Family Medicine
DX: R07.9 Chest pain, unspecified (principal); R10.13 Epigastric pain; Z86.73 Personal history of transient ischemic attack (TIA), and cerebral infarction without residual deficits; I10 Essential (primary) hypertension; Z79.84 Long term (current) use of oral hypoglycemic drugs; E87.1 Hypo-osmolality and hyponatremia; E11.65 Type 2 diabetes mellitus with hyperglycemia; D50.9 Iron deficiency anemia, unspecified; I20.0 Unstable angina; J18.9 Pneumonia, unspecified organism

== ENCOUNTER 2021-03-08 18:27 | Observation (INO) | payer MEDICARE, BC ==
[~2021-03-08] VITALS: Ht 172.7 cm; Wt 56.8 kg
[~2021-03-08 18:27] MED LIST changes: +ISOSORBIDE MONO30 M1 PO; +NITROQUICK0.4 MG SL; +OMNICEF300 MG PO; +PLAVIX75 MG PO; +PRAVASTATIN SOD10 MG PO
[2021-03-08 19:00] LABS: BASOPHILS 0.7 % (0-2); EOSINOPHILS 0.8 % (0-7); HEMATOCRIT 34.7 % (36.0-48.0); HEMOGLOBIN 11.1 g/dL (12-16); LYMPHOCYTES 24.1 % (15-50); MCH 24.5 pg (26.0-34.0); MCV 76.7 fL (80.0-100.0); MEAN PLATELET VOLUME 8.2 fL (7.4-10.4); MONOCYTES 8.8 % (2-11); NEUTROPHILS 65.6 % (40-80); PLATELET COUNT 317 10x3/uL (130-400); RBC 4.53 10x6/uL (4.00-5.40); RDW 17.2 % (11.5-14.5)
[2021-03-08 19:06] LABS: INR 1.09 (0.85-1.17); PROTIME 13.1 SECONDS (11.6-15.0)
[2021-03-08 19:08] LABS: D-DIMER-QUANTITATIVE 1.1 ug/mLFEU (0.20-0.54)
[2021-03-08 19:16] LABS: WBC 11.4 10x3/uL (4.8-10.8)
[2021-03-08 19:28] LABS: CALCIUM 9.1 mg/dL (8.5-10.1); CARBON DIOXIDE 20.9 mmol/L (21.0-32.0); CHLORIDE - SERUM 101 mmol/L (98-107); POTASSIUM - SERUM 3.8 mmol/L (3.5-5.1); SODIUM 137 mmol/L (136-145); UREA NITROGEN 14 mg/dL (7-18); eGFR NON AFRICAN AMERICAN 63 mL/min (90-120)
[2021-03-08 19:30] VITALS: BP 162/80
[2021-03-08 19:31] LABS: CALC OSMOLALITY 279 mosm/kg (275-300); CREATININE - SERUM 0.9 mg/dL (0.6-1.3); GLUCOSE 181 mg/dL (74-106)
[2021-03-08 19:55] LABS: ALBUMIN 3.2 g/dL (3.4-5.0); ALKALINE PHOSPHATASE 80 U/L (30-120); ALT (SGPT) 15 U/L (10-68); BILIRUBIN - TOTAL 0.31 mg/dL (0.2-1.3); CREATINE KINASE 526 UL (21-215); PRO BNP 490 pg/mL (0-450); THYROID STIMULATING HORMONE 2.92 uIU/mL (0.36-3.74)
[2021-03-08 19:57] LABS: TROPONIN-I < 0.017 ng/mL (0.000-0.060)
[2021-03-08 20:00] VITALS: BP 151/88
[2021-03-08 20:01] LABS: CKMB 0.9 U/L (0.0-3.6)
[2021-03-08 20:30] VITALS: BP 174/90
[2021-03-08 21:00] VITALS: BP 155/89
--- NOTE | 2021-03-09 00:02 | NUR ---
PT ARRIVED ON UNIT VIA STRETCHER, ESCORTED BY ER NURSE AND HER DAUGHTER. POSITIONED IN BED FOR COMFORT. ORIENTED TO ROOM AND CALL LIGHT. IV FLUIDS CONTINUED ON TRANSFER PER ORDER.
--- NOTE | 2021-03-09 00:15 | NUR ---
TELEMETRY PLACED PER ORDER AND PT READING SR AT 88 W/ PAC'S PER WOOD SAWYER. SCD'S PLACED ON BLE. INCENTIVE INSPIROMETER PLACED AT BEDSIDE AND INSTRUCTED ON USE.
[2021-03-09 00:37] VITALS: BP 128/69; Ht 172.7 cm; Wt 56.8 kg
--- NOTE | 2021-03-09 01:00 | NUR ---
ASSISTED PT UP TO VOID IN RESTROOM.
[2021-03-09 04:00] VITALS: BP 126/67
[2021-03-09 06:07] LABS: BASOPHILS 0.7 % (0-2); EOSINOPHILS 0.5 % (0-7); HEMATOCRIT 29.3 % (36.0-48.0); HEMOGLOBIN 9.8 g/dL (12-16); LYMPHOCYTES 29.5 % (15-50); MCH 25.4 pg (26.0-34.0); MCHC 33.4 g/dL (31.0-37.0); MCV 76.1 fL (80.0-100.0); MEAN PLATELET VOLUME 8.3 fL (7.4-10.4); MONOCYTES 11.1 % (2-11); NEUTROPHILS 58.2 % (40-80); PLATELET COUNT 269 10x3/uL (130-400); RBC 3.85 10x6/uL (4.00-5.40); RDW 17.1 % (11.5-14.5)
[2021-03-09 06:22] LABS: WBC 6.7 10x3/uL (4.8-10.8)
[2021-03-09 06:58] LABS: ANION GAP 13.8 mmol/L (8-16); CARBON DIOXIDE 22.9 mmol/L (21.0-32.0); CREATININE - SERUM 0.8 mg/dL (0.6-1.3); POTASSIUM - SERUM 3.7 mmol/L (3.5-5.1); T4 THYROXIN - FREE 1.27 ng/dL (0.76-1.46)
--- NOTE | 2021-03-09 07:45 | NUR ---
WILL NEED NEW ORDERS TO WORK WITH PATIENT
[2021-03-09 10:02] VITALS: BP 138/60
--- NOTE | 2021-03-09 10:51 | NUR ---
PATIENT ALERT AND ORIENTED THIS MORNING, DAUGHTER AT BEDSIDE, STATED PATIENT WAS DC YESTERDAY AND RETURNED 30MINS LATER, SHE WAS SENT HOME WITH AN ABX AND DAUGHTER WANTED TO KNOW IF PATIENT SHOULD STILL BE ON THAT ABX WHILE HERE. WILL CALL ALEXI BARCLAY IN REGARDS TO DAUGHTERS CONCERNS
--- NOTE | 2021-03-09 14:39 | NUR ---
I have reviewed this patient and I concur with the Shift Assessment completed by the Licensed Practical Nurse today this shift.
[2021-03-09 14:48] VITALS: BP 131/62
--- NOTE | 2021-03-09 15:42 | NUR ---
PATIENT DAUGHTER CAME TO NURSING STATION INQUIRED ON DC FOR PATIENT, CALLED DELIA TRUONG. WHO STATED SHE WILL GET ON IT, NO OTHER NEEDS AT THIS TIME. CONTINUE WITH PLAN OF CARE
== END 2021-03-09 16:41 | disposition home or self-care (01) ==
LOC: D.ER 18:27 → D.MS 21:58 → OBSVTIME 21:58 → D.MS 03-09 16:41
PROVIDERS: Family Medicine; ADMIT Family Medicine Adult Medicine; ATTEND Family Medicine Adult Medicine
DX: G45.9 Transient cerebral ischemic attack, unspecified (principal); I10 Essential (primary) hypertension; Z79.84 Long term (current) use of oral hypoglycemic drugs; R61 Generalized hyperhidrosis; I25.10 Atherosclerotic heart disease of native coronary artery without angina pectoris; E11.65 Type 2 diabetes mellitus with hyperglycemia; D50.9 Iron deficiency anemia, unspecified; I48.20 Chronic atrial fibrillation, unspecified; D72.829 Elevated white blood cell count, unspecified; R53.1 Weakness

== ENCOUNTER 2021-04-22 10:58 | Inpatient (IN) | payer MEDICARE, BC ==
[~2021-04-22] VITALS: Ht 172.7 cm; Wt 54.5 kg
[2021-04-22 11:55] LABS: BASOPHILS 0.2 % (0-2); EOSINOPHILS 0.4 % (0-7); HEMATOCRIT 32.2 % (36.0-48.0); HEMOGLOBIN 10.5 g/dL (12-16); LYMPHOCYTES 23.9 % (15-50); MCH 24.3 pg (26.0-34.0); MCHC 32.5 g/dL (31.0-37.0); MCV 74.8 fL (80.0-100.0); MEAN PLATELET VOLUME 7.4 fL (7.4-10.4); MONOCYTES 8.8 % (2-11); NEUTROPHILS 66.7 % (40-80); RDW 16.4 % (11.5-14.5); WBC 12.5 10x3/uL (4.8-10.8)
[2021-04-22 11:59] LABS: ANION GAP 15.7 mmol/L (8-16); CALCIUM 8.9 mg/dL (8.5-10.1); CARBON DIOXIDE 24.7 mmol/L (21.0-32.0); CREATININE - SERUM 0.8 mg/dL (0.6-1.3); POTASSIUM - SERUM 4.4 mmol/L (3.5-5.1)
[2021-04-22 12:04] LABS: PLATELET COUNT 498 10x3/uL (130-400)
[2021-04-22 12:06] LABS: ALBUMIN 3.2 g/dL (3.4-5.0); BILIRUBIN - TOTAL 0.29 mg/dL (0.2-1.3); PROTEIN - SERUM 8.2 g/dL (6.4-8.2)
[2021-04-22 19:00] VITALS: BP 144/61
[2021-04-22 20:04] LABS: BILIRUBIN NEGATIVE (NEGATIVE); KETONE TRACE mg/dL (< 1+); NITRITE NEGATIVE (NEGATIVE); PH 6.5 (5.0-8.0); SQUAMOUS EPITHELIAL 5 HPF (0-4); UROBILINOGEN NORMAL mg/dL (< 2)
[2021-04-22 20:05] LABS: WHITE CELLS - URINE 25 HPF (0-4)
[2021-04-22 21:39] VITALS: BP 139/72
--- NOTE | 2021-04-23 01:31 | NUR ---
RESTING QUIETLY. LIGHTS TURNED OFF IN ROOM. PATIENT SAYS "MAYBE THAT WILL HELP ME SLEEP"
--- NOTE | 2021-04-23 05:00 | NUR ---
RECIEVED TO ROOM ALERT AND ORIENTIATED, DENIES PAIN OR NEEDS SEE ASSESSMENT, CALL LIGHT IN REACH
[2021-04-23 05:02] VITALS: Ht 172.7 cm; Wt 54.5 kg
[2021-04-23 07:23] LABS: BASOPHILS 0.5 % (0-2); EOSINOPHILS 0.2 % (0-7); HEMATOCRIT 31.5 % (36.0-48.0); HEMOGLOBIN 10.3 g/dL (12-16); LYMPHOCYTES 19.2 % (15-50); MCH 24.5 pg (26.0-34.0); MCHC 32.7 g/dL (31.0-37.0); MCV 74.9 fL (80.0-100.0); MONOCYTES 11.2 % (2-11); NEUTROPHILS 68.9 % (40-80); PLATELET COUNT 424 10x3/uL (130-400); RDW 16.6 % (11.5-14.5)
[2021-04-23 07:33] LABS: WBC 7.9 10x3/uL (4.8-10.8)
[2021-04-23 07:59] LABS: ALBUMIN 2.8 g/dL (3.4-5.0); ALKALINE PHOSPHATASE 72 U/L (30-120); ALT (SGPT) 18 U/L (10-68); BILIRUBIN - TOTAL 0.31 mg/dL (0.2-1.3); CALC OSMOLALITY 262 mosm/kg (275-300); CALCIUM 8.1 mg/dL (8.5-10.1); CARBON DIOXIDE 24.5 mmol/L (21.0-32.0); CHLORIDE - SERUM 97 mmol/L (98-107); CREATININE - SERUM 0.6 mg/dL (0.6-1.3); GLUCOSE 148 mg/dL (74-106); MAGNESIUM - SERUM 1.7 mg/dL (1.8-2.4); POTASSIUM - SERUM 3.9 mmol/L (3.5-5.1); PROTEIN - SERUM 7.5 g/dL (6.4-8.2); SODIUM 130 mmol/L (136-145); eGFR NON AFRICAN AMERICAN > 90 mL/min (90-120)
[2021-04-23 08:01] LABS: UREA NITROGEN 9 mg/dL (7-18)
[2021-04-23] MEDS ORDERED: BACTRIM DS TAB1 EAC1 PO (08:36)
--- NOTE | 2021-04-23 09:24 | NUR ---
ALERT AND ORIENTED. ASSESSMENT COMPLETE. DAUGHTER AT BEDSIDE. PATIENT TO DC THIS AM. SPOKE WITH ALEXI LIN WHO STATES OK IF NO UACS COLLECTED PRIOR TO DC. WAITING PAPERWORK.
[2021-04-23 09:31] VITALS: BP 126/66
--- NOTE | 2021-04-23 09:46 | NUR ---
DC EDUCATION PROVIDED BOTH WRITTEN AND VERBAL TO PATIENT AND DAUGHTER AT BEDSIDE. PAPERWORK SIGNED BY DAUGHTER WHO IS POA, PER PATIENT REQUEST. PATIENT DENIES FURTHER NEEDS. IV REMOVED FROM RFA WITH TIP INTACT. PATIENT DC HOME WITH DAUGHTER WITH ALL BELONGINGS.
== END 2021-04-23 10:31 | disposition home or self-care (01) | DRG 641 ==
LOC: D.ER 10:58 → D.EDHOLD 13:38 → D.MS 13:38
PROVIDERS: Emergency Medicine; ADMIT Family Medicine; ATTEND Family Medicine
DX: E87.1 Hypo-osmolality and hyponatremia (principal); N39.0 Urinary tract infection, site not specified; I10 Essential (primary) hypertension; E03.9 Hypothyroidism, unspecified; E11.9 Type 2 diabetes mellitus without complications

== ENCOUNTER 2021-04-24 08:55 | Emergency (ER) | payer MEDICARE, BC ==
[~2021-04-24] VITALS: Ht 167.6 cm; Wt 56.8 kg
[~2021-04-24 08:55] MED LIST changes: +BACTRIM DS TAB1 EAC1 PO
[2021-04-24 09:03] VITALS: Ht 167.6 cm; Wt 56.8 kg
[2021-04-24] MEDS ORDERED: VITAMIN B 12 PO (09:09)
[2021-04-24 09:29] LABS: BASOPHILS 0.9 % (0-2); EOSINOPHILS 0.6 % (0-7); LYMPHOCYTES 16.8 % (15-50); MCH 24.5 pg (26.0-34.0); MCHC 32.4 g/dL (31.0-37.0); MCV 75.5 fL (80.0-100.0); MEAN PLATELET VOLUME 7.3 fL (7.4-10.4); MONOCYTES 7.1 % (2-11); NEUTROPHILS 74.6 % (40-80); PLATELET COUNT 408 10x3/uL (130-400); RBC 4.11 10x6/uL (4.00-5.40); RDW 16.7 % (11.5-14.5)
[2021-04-24 09:30] LABS: WBC 10.2 10x3/uL (4.8-10.8)
[2021-04-24 09:38] LABS: CALCIUM 8.8 mg/dL (8.5-10.1); CARBON DIOXIDE 21.8 mmol/L (21.0-32.0); CHLORIDE - SERUM 98 mmol/L (98-107); POTASSIUM - SERUM 4.2 mmol/L (3.5-5.1); SODIUM 129 mmol/L (136-145); eGFR NON AFRICAN AMERICAN 56 mL/min (90-120)
[2021-04-24 09:39] LABS: CALC OSMOLALITY 272 mosm/kg (275-300); GLUCOSE 324 mg/dL (74-106); UREA NITROGEN 16 mg/dL (7-18)
[2021-04-24 10:04] LABS: ALBUMIN 2.8 g/dL (3.4-5.0); ALKALINE PHOSPHATASE 71 U/L (30-120); ALT (SGPT) 16 U/L (10-68); BILIRUBIN - TOTAL 0.24 mg/dL (0.2-1.3); CKMB 0.9 U/L (0.0-3.6); CREATINE KINASE 445 UL (21-215); MAGNESIUM - SERUM 1.7 mg/dL (1.8-2.4); PROTEIN - SERUM 7.8 g/dL (6.4-8.2); THYROID STIMULATING HORMONE 1.38 uIU/mL (0.36-3.74); TROPONIN-I < 0.017 ng/mL (0.000-0.060)
[2021-04-24 10:06] LABS: INR 1.24 (0.85-1.17); PROTIME 14.4 SECONDS (11.6-15.0)
[2021-04-24 10:38] LABS: APTT 32.9 SECONDS (22.8-39.4)
[2021-04-24 12:00] VITALS: BP 123/66
== END 2021-04-24 12:00 | disposition home or self-care (01) ==
LOC: D.ER 08:55
PROVIDERS: Family Medicine
DX: R55 Syncope and collapse (principal); R61 Generalized hyperhidrosis; E87.1 Hypo-osmolality and hyponatremia; E11.9 Type 2 diabetes mellitus without complications; Z86.73 Personal history of transient ischemic attack (TIA), and cerebral infarction without residual deficits; J44.9 Chronic obstructive pulmonary disease, unspecified; Z79.84 Long term (current) use of oral hypoglycemic drugs